=== PATIENT | male | born 2000 | race Caucasian/White ===

== ENCOUNTER 2019-12-22 03:49 | Emergency (ER) | payer OTHER, SELFPAY ==
[2019-12-22 03:53] VITALS: BP 159/82; PULSE 101; RESP 20; TEMP 37.9; O2SAT 98; BMI 21.5
--- NOTE | 2019-12-22 04:03 | ED_ITS ---
HPI - General Adult General Chief complaint: General Medical Stated complaint: Sore Throat Time Seen by Provider: 12/22/19 04:03 Source: patient Mode of arrival: ambulatory Limitations: no limitations History of Present Illness HPI narrative: This is a 19-year-old male who presents with 2 days of worsening sore throat and today was having some difficulty with swallowing with chills but denies any nausea, vomiting, recent travel, COVID-19 exposure. Related Data Allergies Allergy/AdvReac Type Severity Reaction Status Date / Time penicillin V Allergy Unknown Rash Verified 12/22/19 04:06 Penicillins [PENICILLINS] Allergy Unknown RASH Verified 12/22/19 04:06 Review of Systems Review of Systems: Pertinent positives and negatives as stated in HPI 10 point review of systems is otherwise negative. [facility] Past Medical History Source: nursing notes reviewed Social History Social History Alcohol intake: never Smoking Status: Never smoker Use of substances other than those prescribed or required for medical reasons: No Advance Directives: No Advance Directives Information Provided: No Physical Exam Vital Signs: Vital Signs: Vital Signs Temp Pulse Resp BP Pulse Ox 12/22/19 03:53 100.2 F 101 H 20 159/82 H 98 Body Mass Index 21.5 VITAL SIGNS: Reviewed. GENERAL: Well developed, well nourished, in no acute distress. HEAD: Normocephalic/atraumatic, EYES: PERRLA, EOMI intact without pain, no nystagmus/pallor/icterus noted EARS: Ext canals without abnormality, TMs non-bulging and non-erythematous NOSE: Nares patent bilateral OROPHARYNX: no oral lesions noted, posterior pharynx erythematous with noted tonsillar enlargement/erythema/exudates NECK: Supple, no adenopathy LUNGS: Normal breath sounds. No adventitious sounds or accessory muscle use. SpO2<98> CARDIOVASCULAR: Regular rate and rhythm without noted murmurs, no JVD or lower extremity edema. ABDOMEN: Soft, non-tender, non-distended with bowel sounds. No rigidity. No guarding. No palpable masses or hernias noted MUSCULOSKELETAL: No tenderness, deformities, or effusions noted on gross inspection. EXTREMITIES: No cyanosis, clubbing or edema. SKIN: Inspection of the skin reveals no rashes, ulcerations, jaundice, pallor, or petechiae. NEUROLOGIC: Alert and oriented x 4. Strength and sensation to light touch were grossly intact x 4. Course Course Course Narrative: This is a 19-year-old male with history and clinical presentation most consistent with strep pharyngitis and less likely mononucleosis or viral pharyngitis. Rapid strep was negative, but Monospot was positive. Patient was informed all results and discharged in stable condition. Medical Decision Making Lab Data Labs: Lab Results 12/22/19 Range/Units 05:18 Monoscreen Positive A (Negative) Discharge Plan Discharge Clinical Impression: Mononucleosis Qualifiers: Infectious mononucleosis etiology: unspecified organism Infectious mononucleosis complication: without complication Qualified Code(s): B27.90 - Infectious mononucleosis, unspecified without complication Patient Disposition: Home, Self-Care Instructions: Mononucleosis (ED) Additional Instructions: 1. Tylenol 1000 mg per orally, every 6 hours as needed for fever control. Do not exceed 4000 mg within 24 hours. 2. Ibuprofen 400 mg, orally with milk or food, every 6 hours as needed for fever control as well as sore throat. 3. Increase fluid hydration especially water. 4. Do not engage in contact sports such as wrestling, football, soccer until further evaluated by her primary care provider. The patient and/or family acknowledge understanding of results (as applicable), diagnosis, treatment plan, need for follow up, and symptoms that should prompt a return to the emergency room. Referrals: Physician,Unknown [Primary Care Provider] - 2 days ( Further evaluation for mononucleosis) Stand Alone Forms: Work/School Release
[2019-12-22] MEDS: Acetaminophen 325 MG TABLET 975 MG PO (04:11)
[2019-12-22 06:00] VITALS: BP 126/84; PULSE 85; RESP 16; TEMP 37.8; O2SAT 99
[2019-12-22 06:07] LABS: Monotest Positive (Negative)
== END 2019-12-22 06:26 | disposition home or self-care (01) ==
PROVIDERS: Emergency Provider Student in an Organized Health Care Education/Training Program
DX: J02.9 Acute pharyngitis, unspecified (principal); B27.90 Infectious mononucleosis, unspecified without complication; Z20.828 Contact with and (suspected) exposure to other viral communicable diseases
CPT/HCPCS: 86308; 87071; 87880; 99283; 99284

== ENCOUNTER 2020-05-28 09:55 | Emergency (ER) | payer OTHER, SELFPAY ==
--- NOTE | ~2020-05-28 | XR_ITS ---
EXAMINATION: XR CHEST CLINICAL INFORMATION: Cough. COMPARISON: None TECHNIQUE: Frontal view of the chest was obtained. FINDINGS: No significant abnormality is noted involving the heart, lungs, mediastinum, bony thorax or soft tissues. XR/XR chest 1V IMPRESSION: Unremarkable examination.
[2020-05-28 11:03] VITALS: BP 126/84; PULSE 113; RESP 18; O2SAT 99; BMI 20.7
[2020-05-28 11:46] VITALS: BP 119/77; PULSE 70; RESP 16; TEMP 37.1; O2SAT 98
[2020-05-28] MEDS: Ketorolac Tromethamine 30 MG/ML VIAL IM (11:54)
--- NOTE | 2020-05-28 12:51 | ED_ITS ---
HPI - General Adult General Chief complaint: Upper Respiratory Symptoms Stated complaint: covis symptoms Time Seen by Provider: 05/28/20 11:19 Source: patient Mode of arrival: ambulatory Limitations: no limitations History of Present Illness HPI narrative: 19 yo otherwise healthy male presenting with 2 days of sore throat, dry cough, headaches, body aches including back and chest discomfort when he cough. He has been in contact with people who were recently diagnosed with COVID-19. He denies shortness of breath or difficultly breathing. He reports his whole body hurts. He has not taken any medications for the pain. He did not take his temperature at home but reports feeling chills intermittently. No N/V/D or abdominal pain. MD complaint: COVID-19 symptoms Onset (ago): day(s) (2) Location: head, chest, back, left, right and lower extremity Radiation: non-radiation Severity: moderate Quality: aching Pain Consistency: constant Relieving factors: rest Exacerbating factors: movement Associated symptoms: cough, fever/chills, headaches and malaise Treatments prior to arrival: none Related Data Allergies Allergy/AdvReac Type Severity Reaction Status Date / Time penicillin V Allergy Unknown Rash Verified 12/22/19 04:06 Penicillins [PENICILLINS] Allergy Unknown RASH Verified 12/22/19 04:06 Review of Systems Review of Systems: Constitutional: No Fever, + Chills ENT/Mouth: + sore throat, No Rhinorrhea, No Swallowing Difficulty Cardiovascular: + Chest Pain, No SOB, No Orthopnea, No Edema Respiratory: + Cough, No Sputum, No Wheezing, No dyspnea Gastrointestinal: No Nausea, No Vomiting, No Diarrhea, No abdominal Pain Genitourinary: No Dysuria, No Urinary Frequency, No Hematuria Musculoskeletal: No joint pain, + Myalgias Skin: No Skin Lesions, No rash Neuro: No Weakness, No Numbness, No Dizziness, + Headache Heme/Lymph: No Lymphadenopathy PMFSH Past Medical History Medical History No active medical problems Social History Social History Alcohol intake: never Smoking Status: Never smoker Advance Directives: No Physical Exam Vital Signs: Vital Signs: Last Vital Signs Temp 98.7 F 05/28/20 11:46 Pulse 70 05/28/20 11:46 Resp 16 05/28/20 11:46 BP 119/77 05/28/20 11:46 Pulse Ox 98 05/28/20 11:46 Body Mass Index 20.7 Appearance: Alert. Oriented X3. No acute distress. Eyes: Pupils equal, round and reactive to light. ENT: Pharynx normal. Neck: Normal inspection. Neck supple. CVS: Normal heart rate and rhythm. Pulses normal. Respiratory: No respiratory distress. Breath sounds normal. Abdomen: Soft and nontender. +BS x4 Back: mild tenderness throughout thoracic chest wall Skin: Skin warm and dry. Normal skin color. Normal skin turgor. No rashes. Extremities: No lower extremity edema. Neuro: Oriented X 3. Non-focal, steady gait Course Course Course Narrative: 19 y/o male presenting with COVID symptoms after known exp osure. He is tachycardic on arrival in no distress, reports all over body pain. When at rest his HR are normal in the 70s. His VS are otherwise stable and he appears well, non-toxic. No calf tenderness or swelling. This is likely due to COVID-19. Reevaluation(s) Reevaluation #1: COVID is negative at this time, however there is high concern that this is a FALSE negative given his clinical presentation and KNOWN EXPOSURE. He was advised of this concern and recommendation for retesting. He is stable for discharge with strict instructions to return if symptoms worsen. Medical Decision Making Lab Data Labs: Lab Results 05/28/20 Range/Units 11:51 Coronavirus (PCR) NEGATIVE (Negative) Influenza Type A (PCR) NEGATIVE (Negative) Influenza Type B (PCR) NEGATIVE (Negative) RSV RNA Qual (PCR) NEGATIVE (Negative) Critical Care Time Critical Care Time Critical Care Time: No Discharge Plan Discharge Clinical Impression: Acute viral syndrome Patient Disposition: Home, Self-Care Instructions: Viral Syndrome (ED), COVID-19 (Coronavirus Disease 2019) (ED) Additional Instructions: Your COVID test was NEGATIVE today. There is concern this a FALSE negtive given your clinical presentation and known exposure to someone with COVID. Recommend re-testing in 2 days. Recommend strict COVID precautions with self-isolation and monitoring of symptoms and temperatures at home. Take Tylenol and/or Motrin as needed for body aches and pains. Rest and stay hydrated. Do not go out in public while you are feeling unwell. Come back to the ER if your symptoms worsen.
[2020-05-28 12:54] LABS: Influenza A PCR NEGATIVE (Negative); Influenza B PCR NEGATIVE (Negative); Resp Syncy Virus RNA Qual PCR NEGATIVE (Negative); SARS COV2 PCR INHOUSE NEGATIVE (Negative)
== END 2020-05-28 14:10 | disposition home or self-care (01) ==
PROVIDERS: Physician Assistant; Emergency Provider Emergency Medicine Emergency Medical Services
DX: B34.9 Viral infection, unspecified (principal); Z20.822 Contact with and (suspected) exposure to COVID-19; J02.9 Acute pharyngitis, unspecified; M79.10 Myalgia, unspecified site
CPT/HCPCS: 0241U; 36415; 71045; 96372; 99283; 99284; J1885

== ENCOUNTER 2023-10-06 17:23 | Emergency (ER) | payer OTHER, SELFPAY ==
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
[2023-10-06 17:31] VITALS: BP 128/80; BP 132/92; PULSE 70; PULSE 81; RESP 18; TEMP 37.2; O2SAT 97; O2SAT 99; BMI 22.4
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
[2023-10-06] MEDS: Ketorolac Tromethamine 30 MG/ML VIAL IVPUSH (19:08)
[2023-10-06 19:18] VITALS: BP 132/92; PULSE 81; RESP 18; TEMP 37.2; O2SAT 97
== END 2023-10-06 19:18 | disposition home or self-care (01) ==
PROVIDERS: Emergency Provider Internal Medicine
DX: S62.393A Other fracture of third metacarpal bone, left hand, initial encounter for closed fracture (principal); S62.395A Other fracture of fourth metacarpal bone, left hand, initial encounter for closed fracture; S90.31XA Contusion of right foot, initial encounter; V43.52XA Car driver injured in collision with other type car in traffic accident, initial encounter; W22.11XA Striking against or struck by driver side automobile airbag, initial encounter; Y93.89 Activity, other specified; Y92.414 Local residential or business street as the place of occurrence of the external cause; Y99.9 Unspecified external cause status
CPT/HCPCS: 29125; 73090; 73110; 73130; 73610; 73620; 96374; 99283; 99284; J1885

== ENCOUNTER 2023-10-10 10:34 | Outpatient (AMB) | payer OTHER, MEDICAID, SELFPAY ==
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
[2023-10-10 10:55] VITALS: BMI 22.4
== END 2023-10-10 11:44 | disposition home or self-care (01) ==
DX: S62.301A Unspecified fracture of second metacarpal bone, left hand, initial encounter for closed fracture (principal); S62.303A Unspecified fracture of third metacarpal bone, left hand, initial encounter for closed fracture; S62.305A Unspecified fracture of fourth metacarpal bone, left hand, initial encounter for closed fracture
CPT/HCPCS: 99204

== ENCOUNTER 2023-10-10 10:53 | Outpatient (REF) | payer OTHER, MEDICAID, SELFPAY ==
--- NOTE | ~2023-10-10 | XR_ITS ---
EXAMINATION: XR HAND, LEFT CLINICAL INFORMATION: Left hand pain COMPARISON: 10/06/2023 TECHNIQUE: PA, lateral, and oblique views of the left hand. FINDINGS: Slightly angulated and displaced fractures of the mid third and fourth metacarpals. No additional fractures. No change. XR/XR hand LT min 3V IMPRESSION: Slightly angulated and displaced fractures of the mid third and fourth metacarpals. Electronically signed by: Saeed Hawkins MD 10/16/2023 11:47 AM EDT
== END 2023-10-10 10:54 | disposition home or self-care (01) ==
LOC: HO.HOSX 10:53
DX: M79.642 Pain in left hand (principal)
CPT/HCPCS: 73130

== ENCOUNTER 2023-10-13 10:26 | Day surgery (SDC) | payer OTHER, MEDICAID, SELFPAY ==
[2023-10-13] VITALS (11 sets, daily range): BP systolic 119–157; BP diastolic 58–99; PULSE 48–81; RESP 14–16; TEMP 36.5–37.1; O2SAT 94–100; BMI 22.4
--- NOTE | ~2023-10-13 | FL_ITS ---
EXAMINATION: FLUOROSCOPY GUIDANCE FOR NEEDLE PLACEMENT CLINICAL INFORMATION: Fluoroscopy by the orthopedics department COMPARISON: Hand x-ray on 10/10/2023 TECHNIQUE: 3 fluoroscopic spot views FINDINGS: Fluoroscopy during fixation of the third and fourth metacarpals FLUOROSCOPY TIME: 0.1 minutes DOSE AREA PRODUCT: 0.1112 Gy-cm2 (mahoney-centimeter squared) FL/FL guidance in OR IMPRESSION: Fluoroscopy performed by the orthopedic department. Please see operative report for additional information. Electronically signed by: Monika Minaya MD 10/25/2023 05:18 PM EDT
--- NOTE | 2023-10-13 07:49 | W.PM.OPN ---
Operative Note Operative Note Date of Service: 10/13/23 Narrative: Operative Note Narrative: Preop diagnosis: 1. Left 3rd Metacarpal shaft fracture 2. Left 4th metacarpal shaft fracture 3. Left 2nd metacarpal base fracture Postop diagnosis: Same Procedure: 1. Left 3rd Metacarpal fracture closed reduction percutaneous pinning 2. Left 4th metacarpal fracture CRPP 3. Left 2nd metacarpal base fracture treated non operatively Surgeon: Radha Valentin MD Strike Out Machine Operator: None Anesthesia: General Anesthesia Findings: Metacarpal fractures Implants: 0.054 K-wires x2 EBL: Minimal Specimen: None Drains: None Complications: None Disposition: Brought to the recovery room in stable condition Plan: Follow-up in 10-14 days for a wound check, postop radiographs and for placement in a short-arm finger spica Anticipate K-wire removal in 4 weeks based on interval bony healing Educate the patient that full fracture healing anticipated in approximately 8-12 weeks. Indications: The patient is a 22 years old with fractures of the left 3rd and 4th metacarpal shafts, end of the left 2nd metacarpal base . The risks and benefits of operative treatment, including but not limited to risk of damage to blood vessels, nerves, tendons, infection, recurrence, delayed or nonunion of fracture, persistent pain or numbness, incomplete resolution of preoperative symptoms, or need for further surgery were discussed with the patient and they wished to proceed with surgery. Procedure: Once consent was obtained patient was brought back to the operating suite and placed in the operating table in a supine position. . Perioperative antibiotics and general anesthesia was administered by the anesthesia team. A tourniquet was applied to the proximal aspect of the left upper extremity and the limb was prepped and draped in a standard surgical fashion. Tourniquet was not inflated during the case. The FluoroScan was used during the case to assist with our fracture reduction and placement of all implants. A closed reduction was performed on the patient's 4th metacarpal shaft fracture. I placed a single 0.054 K-wire retrograde through the head of the 4th metacarpal extending proximally across the fracture site to the base of the metacarpal. A 2nd 0.054 K-wire was placed retrograde through the head of the 3rd metacarpal and advanced retrograde across the fracture site and down to the base of the 3rd metacarpal.. Fracture alignment was assessed for both angular and rotational malalignment. Once satisfied with our fracture reduction and implant placement, the K-wires were bent and cut short and pin caps applied. Final fluoroscopic images were then obtained. The 2nd metacarpal base fracture is minimally displaced will be treated non operatively. The wounds were copiously irrigated with normal saline. I infiltrated about the 3rd and 4th metacarpal shaft fracture sites with some 1% lidocaine with epinephrine for postop pain control. A Sterile dressing and short volar splint was applied. The patient appears to have tolerated the procedure well and with no complications. All digits were well vascularized at the conclusion of the case.
[2023-10-13] MEDS: Lactated Ringers 1,000 ML 100 ML IVCONT (11:18)
--- NOTE | 2023-10-13 11:51 | MHC.SHP ---
Pre-Procedural Eval Section A - 24 Hr Update-Section A only Date of Service: 10/13/23 The patient is an INPATIENT: No Changes since office visit: No Cold of Flu in the past 2 weeks, No New Medical Problems, No Changes in Medication and No Patient answered all questions The patient has been examined within 24 hours of the surgical procedure. The History & Physical has been completed within 30 days and I have reviewed it.: Yes Section B - Complete if H&P > 30 days Chief Complaint: Displaced fracture of shaft of first metacarpal Details of Present Illness: Second 3rd and 4th metacarpal fractures Allergies: Allergies Allergy/AdvReac Type Severity Reaction Status Date / Time penicillin V Allergy Unknown Rash Verified 10/10/23 10:58 Penicillins [PENICILLINS] Allergy Unknown RASH Verified 10/10/23 10:58 Plan I have reviewed the history and physical and performed a pertinent physical examination on my patient. No changes have occurred unless specified. Time Spent With Patient Time: Total time managing care of this patient today ____ minutes.
--- NOTE | 2023-10-13 13:16 | HO.ANESPROP2 ---
HPI - Anesthesia Eval Consult details Narrative: left metacarpal fracture PMFSH Active Problems Active Problems: All Active Problems Fracture of fourth metacarpal bone of left hand (Acute) Fracture of third metacarpal bone of left hand (Acute) Fracture of second metacarpal bone of left hand (Acute) Past Medical History Medical History No active medical problems Family History Family history of problems with anesthesia: No Surgical History History of Problems with Anesthesia: No Social History Social History Alcohol intake: never Patient Tobacco Use Status: Never used Tobacco Second Hand Smoke Exposure: No Use of substances other than those prescribed or required for medical reasons: Yes Substance Use Type: Marijuana Have you been hit, kicked, punched, or otherwise hurt by someone within the past year? 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 Meds Allergies Allergy/AdvReac Type Severity Reaction Status Date / Time penicillin V Allergy Unknown Rash Verified 10/10/23 10:58 Penicillins [PENICILLINS] Allergy Unknown RASH Verified 10/10/23 10:58 Active Medications: Current Medications Lactated Ringer's (Lr) 1,000 mls @ 100 mls/hr IVCONT .Q10H ISATU Last Admin: 10/13/23 11:18 Dose: 100 mls/hr Exam Height,Weight and Vital Signs: Height 6 ft Weight 74.843 kg Last Vital Signs Temp 98.8 F 10/13/23 11:10 Pulse 48 L 10/13/23 11:10 Resp 14 10/13/23 11:10 BP 119/58 L 10/13/23 11:10 Pulse Ox 98 10/13/23 11:10 O2 Del Method Room Air 10/13/23 11:10 Airway Mallampati Class: II TM Dist: >3cm Neck ROM: Full Heart: rrr Lungs: cta Assessment and Plan Assessment Anesthesia Assessment: Anesthesia Plan Discussed and Smoking Cess. Discussed Final Anesthetic Review Family History of Problems with Anesthesia: No History of Problems with Anesthesia: No NPO: Yes ASA Class: II (smoking cigarettes and marihuana multiple times daily) Final Preanesthetic Review: No Changes in Pt Med Stat, Meds/Allgs Chart Reviewed, Consent Obtained/Reviewed and Anes Risks/Benef Reviewed Patient Risk: Intermediate Anesthetic Plan Anesthetic Plan: GA Disposition: Standard PACU
[2023-10-13] MEDS: fentaNYL citrate/PF 100 MCG/2 ML VIAL 25 MCG IVPUSH ×4 (13:48→14:04)
[2023-10-13] MEDS: oxyCODONE HCl Immed Release 5 MG TABLET PO (14:03)
== END 2023-10-13 14:49 | disposition home or self-care (01) ==
PROVIDERS: Visit Provider Orthopaedic Surgery
PROC: (CPT 26615; principal; 2023-10-13 12:50)
DX: S62.311A Displaced fracture of base of second metacarpal bone, left hand, initial encounter for closed fracture (principal); S62.323A Displaced fracture of shaft of third metacarpal bone, left hand, initial encounter for closed fracture; S62.325A Displaced fracture of shaft of fourth metacarpal bone, left hand, initial encounter for closed fracture; V49.9XXA Car occupant (driver) (passenger) injured in unspecified traffic accident, initial encounter; W22.10XA Striking against or struck by unspecified automobile airbag, initial encounter; Y93.I9 Activity, other involving external motion; Y92.410 Unspecified street and highway as the place of occurrence of the external cause; M79.642 Pain in left hand; Y99.8 Other external cause status; Z88.0 Allergy status to penicillin
CPT/HCPCS: 26608 ×2; 26600; J0131; J0690; J1100; J2405; J2704; J3010

== ENCOUNTER → 2023-10-13 10:26 | Outpatient (BNV) | payer OTHER, MEDICAID, SELFPAY | PROVIDERS: Visit Provider Orthopaedic Surgery | DX: S62.323A Displaced fracture of shaft of third metacarpal bone, left hand, initial encounter for closed fracture (principal); S62.325A Displaced fracture of shaft of fourth metacarpal bone, left hand, initial encounter for closed fracture | CPT/HCPCS: 26608 ==

== ENCOUNTER 2023-10-21 08:50 | Outpatient (REF) | payer OTHER, MEDICAID, SELFPAY | END 2023-10-21 08:51 | disposition home or self-care (01) | LOC: HO.HOSX 08:50 | PROVIDERS: Visit Provider Orthopaedic Surgery | DX: Z13.89 Encounter for screening for other disorder (principal) ==

== ENCOUNTER 2023-10-22 08:48 | Outpatient (REF) | payer OTHER, MEDICAID, SELFPAY | END 2023-10-22 08:49 | disposition home or self-care (01) | LOC: HO.HOSX 08:48 | PROVIDERS: Visit Provider Orthopaedic Surgery | DX: Z13.89 Encounter for screening for other disorder (principal) ==

== ENCOUNTER 2023-10-24 13:34 | Outpatient (AMB) | payer OTHER, MEDICAID, SELFPAY ==
--- NOTE | 2023-10-24 13:52 | A.OFFVIS_ITS ---
Vital Signs 10/24/23 14:11 Height 6 ft Weight 165 lb BMI 22.4 Intake Visit Reasons: PO LT 3rd/4th MC CRPP 10/13/23 AR Intake Note: Amauri is a 22 yo right hand dominant male who presents today for a left 3rd and 4th MC CRPP done 10/13/[address] Valentin. Patient reports pain is only present on palpation. He denies numbness or tingling. Splint removed today prior to x-rays. Allergies penicillin V Allergy (Unknown, Verified 10/24/23 14:11) Rash Penicillins [PENICILLINS] Allergy (Unknown, Verified 10/24/23 14:11) RASH HPI HPI PO LT 3rd/4th MC CRPP 10/13/23 AR: Details: Patient is a 22-year-old male who presents for postoperative evaluation of left 3rd and 4th metacarpal CRPP, DOS 10/13/[address] Valentin. The patient reports that he is still experiencing some discomfort with palpation in the area of the fractures, but it is significantly improved from prior to surgery. The patient reports that the splint has remained clean, dry, intact at all times since placed in the OR. Patient denies any numbness or tingling of the left upper extremity. No other acute complaints or concerns at this time. 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 Neuro: Normal sensation of the tips of all digits of the left hand at this time Vascular: Cap refill brisk Pain: Patient reports very mild tenderness to palpation about the 3rd and 4th metacarpals of the left hand level of the fractures No other pain with palpation noted ROM: Range of motion of the 3rd and 4th fingers of the left hand limited due to pins Patient is able to come close to making a closed fist with the other digits of the left hand Skin: Pin sites clean, dry, intact No evidence of infection General: No ecchymosis, erythema, or evidence of infection. Psych: Appears grossly normal Affect normal Attitude cooperative Office Procedures Casting/Splints 27983-Ewdc/Wrist Cast Application Procedure code (CPT) selection complete Results Reviewed Results Reviewed: X-rays obtained in the office today and independently reviewed by me, Tommy Romero PA-C, demonstrate well approximated fractures of the 3rd, 4th metacarpals with pins in satisfactory clinical alignment. There is also noted to be a nondisplaced fracture of the 2nd metacarpal base. Assessment & Plan Assessment & Plan (1) Fracture of second metacarpal bone of left hand: Code(s): S62.301A - Unspecified fracture of second metacarpal bone, left hand, initial encounter for closed fracture Category: Medical (2) Fracture of third metacarpal bone of left hand: Code(s): S62.303A - Unspecified fracture of third metacarpal bone, left hand, initial encounter for closed fracture Category: Medical (3) Fracture of fourth metacarpal bone of left hand: Code(s): S62.305A - Unspecified fracture of fourth metacarpal bone, left hand, initial encounter for closed fracture Category: Medical Plan 1. Displaced fracture of the left 3rd metacarpal 2. Displaced fracture of the left 4th metacarpal Status post CRPP, DOS 10/13/2023 Patient appears to be recovering well postoperatively Patient is educated about the typical recovery course At this time, patient is placed in a left short-arm cast Patient is educated on typical cast care and precautions Patient is educated that he should into our office if the cast gets dirty, wrecked, or especially wet, as he has been in his hand and these are a tunnel directly down to the bone, which is a large risk of infection if wet Patient understands this Patient will follow-up in 3 weeks with repeat x-rays, sooner with any acute concerns Orders: Orders XR hand LT min 3V 10/24/23 M79.642 - Pain in left hand Coding Level of Care Code Global (33253) Diagnoses Fracture of second metacarpal bone of left hand S62.301A Fracture of third metacarpal bone of left hand S62.303A Fracture of fourth metacarpal bone of left hand S62.305A CPT Codes Casting - CPT: 58598-Ekst/Wrist Cast Application ([id number])
[2023-10-24 14:11] VITALS: BMI 22.4
== END 2023-10-24 15:58 | disposition home or self-care (01) ==
DX: S62.301A Unspecified fracture of second metacarpal bone, left hand, initial encounter for closed fracture (principal); S62.303A Unspecified fracture of third metacarpal bone, left hand, initial encounter for closed fracture; S62.305A Unspecified fracture of fourth metacarpal bone, left hand, initial encounter for closed fracture
CPT/HCPCS: 29085; 99024

== ENCOUNTER 2023-10-24 13:41 | Outpatient (REF) | payer OTHER, MEDICAID, SELFPAY ==
--- NOTE | ~2023-10-24 | XR_ITS ---
EXAMINATION: XR HAND, LEFT CLINICAL INFORMATION: Left hand pain COMPARISON: Left hand x-ray on 10/10/2023 TECHNIQUE: PA, lateral, and oblique views of the left hand. FINDINGS: Redemonstration of the pins in the metacarpals of the third and fourth digits fixating the oblique fractures. The third metacarpal fracture remains mildly angulated. No significant callus formation is identified. XR/XR hand LT min 3V IMPRESSION: Status post ORIF of the third and fourth metacarpal fractures. Electronically signed by: Monika Minaya MD 10/25/2023 05:17 PM EDT
== END 2023-10-24 13:42 | disposition home or self-care (01) ==
LOC: HO.HOSX 13:41
DX: M79.642 Pain in left hand (principal); S62.301A Unspecified fracture of second metacarpal bone, left hand, initial encounter for closed fracture; S62.303A Unspecified fracture of third metacarpal bone, left hand, initial encounter for closed fracture; S62.305A Unspecified fracture of fourth metacarpal bone, left hand, initial encounter for closed fracture
CPT/HCPCS: 29085; 73130

== ENCOUNTER 2023-11-12 14:35 | Outpatient (REF) | payer OTHER, MEDICAID, SELFPAY ==
--- NOTE | ~2023-11-12 | XR_ITS ---
EXAMINATION: XR HAND, LEFT CLINICAL INFORMATION: M79.642 - Pain in left hand COMPARISON: None available. TECHNIQUE: PA, lateral, oblique and lateral oblique views of the left hand. FINDINGS: Mild disuse osteopenia. Redemonstration of K wires transfixing third and fourth proximal metacarpal diaphyseal fractures. K wires are stable in position. No complication seen. Fractures demonstrate healing, with abutting bony callus, and are stable and overall alignment with no change. There is mild narrowing of ulnar variance again noted. Carpal bones intact and normally aligned. No new fractures or new bony abnormalities. Soft tissues demonstrate mild dorsal swelling. XR/XR hand LT min 3V IMPRESSION: 1. Healing and fixated third and fourth metacarpal fractures, stable in alignment without complication. 2. No new acute findings. Electronically signed by: Steve Lara MD 01/20/2024 10:44 AM [facility]
== END 2023-11-12 14:36 | disposition home or self-care (01) ==
LOC: HO.HOSX 14:35
DX: M79.642 Pain in left hand (principal)
CPT/HCPCS: 73130

== ENCOUNTER → 2023-11-12 14:38 | Outpatient (BNV) | payer OTHER, MEDICAID, SELFPAY | PROVIDERS: Visit Provider Radiology Diagnostic Radiology | DX: S62.303D Unspecified fracture of third metacarpal bone, left hand, subsequent encounter for fracture with routine healing (principal); S62.305D Unspecified fracture of fourth metacarpal bone, left hand, subsequent encounter for fracture with routine healing | CPT/HCPCS: 73130 ==

== ENCOUNTER 2023-11-12 15:01 | Outpatient (AMB) | payer OTHER, MEDICAID, SELFPAY ==
--- NOTE | 2023-11-12 15:15 | MHC.OFFVIS ---
Vital Signs 11/12/23 15:18 Height 6 ft Weight 160 lb BMI 21.7 Handedness Right Intake Visit Reasons: PO LT 3rd/4th MC CRPP 10/13/23 AR Intake Note: Amauri is a 22 year old right hand dominant male who presents today post operatively s/p Left 3rd & 4th Metacarpal CRPP DOS: 10/24/23 w/ Dr Valentin. Patient reports pain and discomfort only when moving his 3rd, 4th and 5th digits, says he thinks it is the wire. He has restrained from heavy lifting. He says at night his hand would fall asleep in the cast and this is the only time he would have numbness and tingling. Patient would like to discuss work status. Allergies penicillin V Allergy (Unknown, Verified 11/12/23 15:17) Rash Penicillins [PENICILLINS] Allergy (Unknown, Verified 11/12/23 15:17) RASH HPI HPI PO LT 3rd/4th MC CRPP 10/13/23 AR: Details: Patient is a 22-year-old male who presents for 4 week postoperative evaluation status post left 3rd and 4th metacarpal CRPP, DOS 10/13/2023. Today, the patient reports that he is feeling well, and is not experiencing any pain at this time. The patient states that his entire hand has gotten rather stiff since DOS, as he has been in a splint and had limited use of his hand. The patient does state that he has hand did slip and knock into a wall, without excessive force, and he was concerned that this may have moved his pins. Patient denies any numbness or tingling in the right upper extremity. No other acute complaints or concerns at this time. 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 Neuro: Normal sensation of the tips of all digits of the left hand at this time Vascular: Cap refill brisk Pain: Patient reports no mild tenderness to palpation about the 3rd and 4th metacarpals of the left hand level of the fractures No other pain with palpation noted ROM: Range of motion of the 3rd and 4th fingers of the left hand limited due to pins Patient is able to come close to making a closed fist with the other digits of the left hand Skin: Pin sites clean, dry, intact No evidence of infection General: No ecchymosis, erythema, or evidence of infection. Psych: Appears grossly normal Affect normal Attitude cooperative Results Reviewed Results Reviewed: X-rays obtained in the office today and independently reviewed by me, Tommy Romero PA-C, demonstrate well approximated fractures of the 3rd, 4th metacarpals with pins in satisfactory clinical alignment and evidence of interval bony healing. There is also noted to be a nondisplaced fracture of the 2nd metacarpal base with evidence of interval bony healing. Assessment & Plan Assessment & Plan (1) Fracture of fourth metacarpal bone of left hand: Code(s): S62.305A - Unspecified fracture of fourth metacarpal bone, left hand, initial encounter for closed fracture Category: Medical (2) Fracture of third metacarpal bone of left hand: Code(s): S62.303A - Unspecified fracture of third metacarpal bone, left hand, initial encounter for closed fracture Category: Medical (3) Fracture of second metacarpal bone of left hand: Code(s): S62.301A - Unspecified fracture of second metacarpal bone, left hand, initial encounter for closed fracture Category: Medical Plan 1. Fracture of 4th metacarpal base of left hand status post CRPP 2. Fracture of 3rd metacarpal base of left hand status post CRPP 3. Fracture of 2nd metacarpal base of left hand, nonsurgical Patient appears to be recovering well postoperatively Patient is educated about the typical recovery course At this time, pins are pulled with minimal difficulty Pin sites are cleaned, covered Patient is advised that he should wait on getting the pin sites wet for at least a further 4-5 days until they close completely Patient is amenable to this plan Patient is advised that he should keep the pin sites clean, dry, and covered at all times until they are closed Patient is educated that he should continue to work on gentle range of motion of the left hand Patient was provided with a Velcro wrist splint to be worn with daytime activities, as well as nathaly tape to nathaly tape the middle and ring fingers to act as a moving splint Patient is also educated that he should continue to adhere to a strict 2 lb weight limit in his right hand, and should still be out of work until follow-up Patient is amenable to this plan Patient will follow-up in 4 weeks with repeat x-rays, sooner with any acute concerns Orders: Orders XR hand LT min 3V Today M79.642 - Pain in left hand Medications: Discontinued ibuprofen Discontinued Reason: Patient no longer taking 600 mg PO Q6H PRN 30 tabs 0RF fever or pain oxycodone-acetaminophen 5-325 mg Partial Fill upon patient request. Discontinued Reason: Patient no longer taking 1 tab PO Q6H PRN 10 tabs 0RF pain Coding Level of Care Code Global (32330) Diagnoses Fracture of fourth metacarpal bone of left hand S62.305A Fracture of third metacarpal bone of left hand S62.303A Fracture of second metacarpal bone of left hand S62.301A
[2023-11-12 15:18] VITALS: BMI 21.7
== END 2023-11-12 16:22 | disposition home or self-care (01) ==
DX: S62.305A Unspecified fracture of fourth metacarpal bone, left hand, initial encounter for closed fracture (principal); S62.303A Unspecified fracture of third metacarpal bone, left hand, initial encounter for closed fracture; S62.301A Unspecified fracture of second metacarpal bone, left hand, initial encounter for closed fracture
CPT/HCPCS: 99024

== ENCOUNTER 2023-12-08 08:24 | Outpatient (REF) | payer OTHER, SELFPAY | END 2023-12-08 08:25 | disposition home or self-care (01) | LOC: HO.HOSX 08:24 | DX: Z13.89 Encounter for screening for other disorder (principal) ==

== ENCOUNTER 2023-12-17 14:39 | Outpatient (REF) | payer OTHER, SELFPAY ==
--- NOTE | ~2023-12-17 | XR_ITS ---
EXAMINATION: XR HAND, LEFT CLINICAL INFORMATION: M79.642 - Pain in left hand COMPARISON: 11/12/2023, and dating back to 10/06/2023. TECHNIQUE: PA, lateral, and oblique views of the left hand. FINDINGS: Disuse osteopenia. K wires have been removed. Third and fourth proximal metacarpal diaphyseal fractures, stable and grossly anatomic alignment. Fractures demonstrate healing, with abutting bony callus, and are stable in overall alignment with no change. There is negative ulnar variance again noted. Carpal bones intact and normally aligned. No new fractures or new bony abnormalities. Soft tissues demonstrate mild dorsal swelling. XR/XR hand LT min 3V IMPRESSION: 1. Removal of K wires. 2. Healing third and fourth metacarpal fractures, stable in alignment without complication. 2. No new acute findings. Electronically signed by: Steve Lara MD 01/20/2024 10:47 AM [facility]
== END 2023-12-17 14:40 | disposition home or self-care (01) ==
LOC: HO.HOSX 14:39
DX: M79.642 Pain in left hand (principal)
CPT/HCPCS: 73130

== ENCOUNTER 2023-12-17 15:19 | Outpatient (AMB) | payer OTHER, SELFPAY ==
[2023-12-17 15:25] VITALS: BMI 21.7
--- NOTE | 2023-12-17 15:25 | A.OFFVIS_ITS ---
Vital Signs 12/17/23 15:25 Height 6 ft Weight 160 lb BMI 21.7 Handedness Right Intake Visit Reasons: PO: LT 3rd/4th MC CRPP 10/13/23 AR Intake Note: Amauri is a 22 year old right hand dominant male who presents today post operatively s/p Left 3rd & 4th Metacarpal CRPP DOS: 10/24/23 w/ Dr Valentin. Patient reports his hand feels good. He has complaints of a bump that grew over the site of where his pins were that causes him pain every time he palpitates the area. He says he picked at it one day and some liquid came out. He says he has been using his hand a lot. Denies any other pain. Allergies penicillin V Allergy (Unknown, Verified 12/17/23 15:) Rash Penicillins [PENICILLINS] Allergy (Unknown, Verified 12/17/23:) RASH HPI HPI PO: LT 3rd/4th MC CRPP 10/13/23 AR: Details: Patient is a 23-year-old male who presents for postoperative evaluation of left 3rd and 4th metacarpal fracture status post CRPP, DOS 10/13/2023. Today, the patient reports that he is feeling very well, and has no pain in his left hand. The patient states that he would like to return to work possible today, as he feels he has been out of work for too long and would like to get back to his job. Patient denies any numbness or tingling in the left hand. No other acute complaints or this time. 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 Neuro: Normal sensation of the tips of all digits of the left hand at this time Vascular: Cap refill brisk Pain: Patient reports no tenderness to palpation about the 3rd and 4th metacarpals of the left hand level of the fractures No other pain with palpation noted ROM: Range of motion of the 3rd and 4th fingers of the left hand full and painless Patient is able to make a closed fist and extend all digits of the left hand fully and without difficulty Skin: Pin sites clean, dry, intact There is a small bump in the area of the old pin site, however there is no surrounding erythema, ecchymosis, drainage, or any evidence of infection No evidence of infection General: No ecchymosis, erythema, or evidence of infection. Psych: Appears grossly normal Affect normal Attitude cooperative Results Reviewed Results Reviewed: X-rays obtained in the office today and independently reviewed by me, Tommy Romero PA-C, demonstrate minimally displaced fractures of the 3rd and 4th metacarpal bases of the left hand with evidence of interval bony healing. Assessment & Plan Assessment & Plan (1) Fracture of fourth metacarpal bone of left hand: Code(s): S62.305A - Unspecified fracture of fourth metacarpal bone, left hand, initial encounter for closed fracture Category: Medical (2) Fracture of third metacarpal bone of left hand: Code(s): S62.303A - Unspecified fracture of third metacarpal bone, left hand, initial encounter for closed fracture Category: Medical (3) Fracture of second metacarpal bone of left hand: Code(s): S62.301A - Unspecified fracture of second metacarpal bone, left hand, initial encounter for closed fracture Category: Medical Plan 1. Fracture of the left 3rd metacarpal 2. Fracture of the left 4th metacarpal 3. Fracture of the left 2nd metacarpal, nonsurgical Status post CRPP DOS 10/13/2023 Patient appears to be recovering well postoperatively Patient is educated about the typical recovery course At this time, patient is cleared to return to normal activity as tolerated, including work Patient was advised on the importance of avoiding any impact activities such as chopping wood or punching things Patient states understanding of this and is amenable to this plan Patient is advised that if he has any increase of pain, swelling, or any repeat injury, he should call us for re-evaluation Patient is also educated that if he notices any redness, swelling, or discharge from the pin sites, he should also call us for another evaluation Patient understands this is amenable to this plan Patient will follow-up as needed with any acute concerns Orders: Orders XR hand LT min 3V 12/17/23 M79.642 - Pain in left hand Coding Level of Care Code Global (44875) Diagnoses Fracture of fourth metacarpal bone of left hand S62.305A Fracture of third metacarpal bone of left hand S62.303A Fracture of second metacarpal bone of left hand S62.301A
== END 2023-12-17 16:01 | disposition home or self-care (01) ==
LOC: HO.HOS 15:20
DX: S62.305A Unspecified fracture of fourth metacarpal bone, left hand, initial encounter for closed fracture (principal); S62.303A Unspecified fracture of third metacarpal bone, left hand, initial encounter for closed fracture; S62.301A Unspecified fracture of second metacarpal bone, left hand, initial encounter for closed fracture
CPT/HCPCS: 99024

== ENCOUNTER → 2023-12-17 15:26 | Outpatient (BNV) | payer OTHER, SELFPAY | PROVIDERS: Visit Provider Radiology Diagnostic Radiology | DX: S62.305D Unspecified fracture of fourth metacarpal bone, left hand, subsequent encounter for fracture with routine healing (principal); S62.303D Unspecified fracture of third metacarpal bone, left hand, subsequent encounter for fracture with routine healing | CPT/HCPCS: 73130 ==

== ENCOUNTER 2024-10-10 13:19 | Emergency (ER) | payer SELFPAY ==
--- NOTE | ~2024-10-10 | XR_ITS ---
CLINICAL HISTORY: trauma 3 views right ankle Comparison: CR/SR - XR ANKLE 3 OR MORE VIEWS RIGHT - 10/06/23 18:01 EDT Findings: Small avulsion fracture lateral to the cuboid. Ankle mortise intact. Normal plafond. No osteochondral lesions. Calcaneus and subtalar joint intact. Normal bone mineralization and soft tissues. Normal pre-Achilles fat pad. No radiopaque foreign body. Impression: 1. Small avulsion fracture lateral to the cuboid. Ankle mortise intact. This document has been electronically signed by: Jake Vargas MD on 10/10/2024 14:43:38
--- NOTE | ~2024-10-10 | XR_ITS ---
CLINICAL HISTORY: trauma 3 views right foot Comparison: CR/SR - XR FOOT 1-2 VIEWS RIGHT - 10/06/23 18:02 EDT Findings: Fractures involving the base of the 2nd and 3rd metatarsal bones.Associated mild lisfranc subluxation at these levels. No periostitis or bony destruction. Remaining joint intervals are preserved. Calcaneus and subtalar joint intact. Probable small avulsion fracture on the dorsum of the navicular bone. soft tissue swelling of the midfoot. Normal pre-Achilles fat pad. No radiopaque foreign body. Impression: 1. Minimally displaced fractures involving the base of the 2nd and 3rd metatarsal bones with mild Lisfranc subluxation. 2. Probable avulsion fracture along the dorsum of the navicular bone. 3. Soft tissue swelling midfoot. This document has been electronically signed by: Jake Vargas MD on 10/10/2024 14:39:39
[2024-10-10 13:34] VITALS: BP 154/96; PULSE 119; RESP 18; TEMP 36.8; O2SAT 95; BMI 20.9
--- NOTE | 2024-10-10 13:36 | ED_ITS ---
HPI - General Adult General Chief complaint: Extremity Injury, Lower Stated complaint: foot injury Time Seen by Provider: 10/10/24 14:59 Source: patient, RN notes reviewed and old records reviewed Mode of arrival: wheelchair Limitations: no limitations History of Present Illness ED Provider: Misael CID narrative: 23-year-old male presents for evaluation of right foot pain. He reports he was playing basketball when he twisted in his right foot while jumping. He has pain to the top of the right foot pain He reports his pain is 10/10 pain Denies any other injuries, denies hitting his head or losing consciousness Related Data Previous Rx's ?Medication ?Instructions ?Recorded ibuprofen 600 mg tablet 600 mg PO Q6H PRN pain #20 t abs 10/10/24 oxycodone 5 mg tablet 5 mg PO Q6H PRN severe pain (scale 10/10/24 score 7-10) #20 tabs Allergies Allergy/AdvReac Type Severity Reaction Status Date / Time penicillin V Allergy Unknown Rash Verified 10/10/24 13:37 Penicillins (PENICILLINS) Allergy Unknown RASH Verified 10/10/24 13:37 Review of Systems Constitutional: Constitutional: Denies body ache(s), Denies chills and Denies fever(s) Eyes: Eyes: Denies blurry vision ENT: Denies dizziness Cardiovascular: Cardiovascular: Denies chest pain Musculoskeletal: Musculoskeletal: Reports arthralgias, Reports joint swelling, Reports limited range of motion, Reports numbness, Reports radiating pain into limb and Reports stiffness Neurologic: Denies dizziness and Reports numbness PMFSH Past Medical History Medical History No active medical problems Social History Social History Alcohol intake: never Patient Tobacco Use Status: Never used Tobacco Second Hand Smoke Exposure: No Substance Use Type: Marijuana Current occupational status: employed 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 There is significant tenderness in his area. There is ecchymosis tear, no open wounds. No tenderness to the right medial or lateral malleolus. There is no calf tenderness, no Achilles tenderness. Capillary refill is under 2 seconds to all digits of the right foot. DP pulses are 2+ and equal Course Course Course Narrative: RME, this is a rapid medical exam performed by Valente Douglas please refer to primary provider for complete H&P- 23-year-old male presents for evaluation of right foot pain. He reports twisting the foot while playing basketball just prior to arrival. He has a large hematoma to the lateral aspect of the right foot. Plan for x-rays of the right foot and ankle. Medications Administered Discontinued Medications Generic Name Dose Route Start Last Admin Trade Name Cameronq PRN Reason Stop Dose Admin Ibuprofen 600 mg 10/10/24 13:37 10/10/24 13:41 Ibuprofen 600 Mg Tablet PO 10/10/24 13:38 600 mg ONCE ONE Administration Morphine Sulfate 4 mg 10/10/24 15:02 10/10/24 15:08 Morphine Sulfate 4 Mg/Ml Cartridge IM 10/10/24 15:03 4 mg ONCE ONE Administration Protocol Ondansetron HCl 4 mg 10/10/24 15:02 10/10/24 15:08 Ondansetron Odt 4 Mg Tab.Rapdis TRANSLINGU 10/10/24 15:03 4 mg ONCE ONE Administration Medical Decision Making Medical Decision Making [facility] Narrative: 23-year-old male presents for evaluation of right foot pain. He reports that this was an injury while playing basketball. After reviewing his x-ray and the numerous fractures, I asked the patient again how he was intra. He admits that he jumped off the 2nd floor roof at his house around 10:00 a.m. this morning. He is adamant that he only has foot pain. He has no abdominal tenderness, no crepitus to his chest, no C-spine, thoracic spine or L-spine tenderness. No evidence of head or facial trauma. We will treat the fractures with a postop boot. The patient was given morphine for his pain and will be discharged with oxycodone and orthopedic follow up. There was no evidence of vascular compromise. Differential Diagnosis Differential Diagnoses: The differential diagnosis associated with the presentation includes Foot fracture Contusion Ankle fracture Dislocation Radiology Impression Discussion of test interpretation with radiology: I have reviewed the radiologist's reading. Radiologist Impression: Findings: Fractures involving the base of the 2nd and 3rd metatarsal bones.Associated mild lisfranc subluxation at these levels. No periostitis or bony destruction. Remaining joint intervals are preserved. Calcaneus and subtalar joint intact. Probable small avulsion fracture on the dorsum of the navicular bone. soft tissue swelling of the midfoot. Normal pre-Achilles fat pad. No radiopaque foreign body. Impression: 1. Minimally displaced fractures involving the base of the 2nd and 3rd metatarsal bones with mild Lisfranc subluxation. 2. Probable avulsion fracture along the dorsum of the navicular bone. 3. Soft tissue swelling midfoot. This document has been electronically signed by: Jake Vargas MD on 10/10/2024 14:39:39 Discharge Plan Discharge Clinical Impression: Fracture of right foot Patient Disposition: Home, Self-Care Instructions: Foot Fracture in Adults (ED) Additional Instructions: You have multiple fractures of your right foot. Use ibuprofen/Tylenol for pain Take oxycodone for more severe, breakthrough pain. This may make you drowsy, do not drink alcohol or drive after taking it In his important that you follow up with Orthopedics, call tomorrow to schedule an appointment Elevate the leg above your heart while resting. Apply ice to the swollen area every 4 hours for 10-15 minutes Prescriptions: New oxycodone 5 mg tablet 5 mg PO Q6H PRN (Reason: severe pain (scale score 7-10)) Qty: 20 0RF Rx Instructions: Partial Fill upon patient request. ibuprofen 600 mg tablet 600 mg PO Q6H PRN (Reason: pain) Qty: 20 0RF Referrals: Prince Cantor MD [Physician, Orthopedics] Referral Note: multiple right foot fractures Print Language: Scottish
[2024-10-10 15:24] VITALS: BP 154/96; PULSE 119; RESP 18; TEMP 36.8; O2SAT 95
== END 2024-10-10 15:33 | disposition home or self-care (01) ==
PROVIDERS: Emergency Provider Emergency Medicine
DX: S92.901A Unspecified fracture of right foot, initial encounter for closed fracture (principal); M79.671 Pain in right foot; W01.0XXA Fall on same level from slipping, tripping and stumbling without subsequent striking against object, initial encounter; Y93.67 Activity, basketball; Y92.310 Basketball court as the place of occurrence of the external cause; Y99.9 Unspecified external cause status
CPT/HCPCS: 73610; 73630; 96372; 99283; 99284; J2270

== ENCOUNTER → 2024-10-10 13:36 | Outpatient (BNV) | payer SELFPAY | PROVIDERS: Visit Provider Radiology Diagnostic Radiology | DX: S92.211A Displaced fracture of cuboid bone of right foot, initial encounter for closed fracture (principal); S92.321A Displaced fracture of second metatarsal bone, right foot, initial encounter for closed fracture; S92.331A Displaced fracture of third metatarsal bone, right foot, initial encounter for closed fracture; X50.1XXA Overexertion from prolonged static or awkward postures, initial encounter | CPT/HCPCS: 73610; 73630 ==